=== PATIENT | male | born 1985 | race Caucasian/White ===

== ENCOUNTER 2019-10-14 19:10 | Inpatient (IN) | payer BC ==
[~2019-10-14] VITALS: Ht 190.5 cm; Wt 105.7 kg
--- NOTE | 2019-10-14 19:36 | NUR ---
PT BIBSELF TO ER WITH C/O RIGHT-SIDE ABDOMINAL PAIN SINCE 6PM TODAY. HAS NAUSEA, DENIES VOMITING. PAIN FEELS LIKE IT IS PULSATING. AAOX4. NO SOB. BREATHING EVENLY AND UNLABORED. CONNECTED TO MONITOR. PLACED IN BED 9
[2019-10-14] MEDS ORDERED: ONDANSETRON HCL/PF 4 MG/2 ML VIAL ONE ×2 (19:56→21:55)
[2019-10-14] MEDS ORDERED: KETOROLAC TROMETHAMINE 15 MG/ML VIAL ONE (19:56)
[2019-10-14 19:58] LABS: BASOPHILS # (AUTO) 0.1 /CMM (0.0-0.2); BASOPHILS % (AUTO) 1.4 % (0.0-2.0); EOSINOPHILS % (AUTO) 1.4 % (0.0-6.0); HEMATOCRIT 56 % (39-51); LYMPHOCYTES # (AUTO) 1.9 /CMM (0.8-4.8); LYMPHOCYTES % (AUTO) 33.1 % (20.0-44.0); MEAN CORPUSCULAR HGB CONC 34 g/dl (31.0-36.0); MEAN CORPUSCULAR VOLUME 94 fL (80-96); MONOCYTES # (AUTO) 0.6 /CMM (0.1-1.30); MONOCYTES % (AUTO) 9.6 % (2.0-12.0); NEUTROPHILS # (AUTO) 3.2 /CMM (1.8-8.9); NEUTROPHILS % (AUTO) 54.5 % (43.0-81.0); PLATELET COUNT (AUTO) 148 /CMM (150-450); WHITE BLOOD COUNT (AUTO) 5.8 K/uL (4.3-11.0)
[2019-10-14] MEDS ORDERED: MORPHINE SULFATE INJ 10 MG/ML DISP.SYRIN IV ONE (20:00)
[2019-10-14] MEDS ORDERED: IV NS 0.9% 1,000 ML BAG IV ONE ×2 (20:00→21:00)
[2019-10-14] MEDS ORDERED: KETOROLAC TROMETHAMINE INJ 30 MG/ML VIAL IV ONE (20:00)
[2019-10-14] MEDS ORDERED: ONDANSETRON HCL/PF 4 MG/2 ML VIAL IVP ONE (20:00)
[2019-10-14] MEDS ORDERED: MORPHINE SULFATE INJ 4 MG/ML DISP.SYRIN ONE (20:06)
--- NOTE | 2019-10-14 20:21 | NUR ---
US AT BEDSIDE
[2019-10-14 20:23] LABS: CREATININE 1.2 mg/dL (0.6-1.3)
[2019-10-14 20:29] LABS: ALBUMIN 4.1 g/dL (3.4-5.0); BILIRUBIN,DIRECT 0.1 mg/dL (0.0-0.2); BILIRUBIN,TOTAL 0.5 mg/dL (0.2-1.0); TOTAL PROTEIN, SERUM 7.5 g/dL (6.4-8.2)
[2019-10-14 21:08] LABS: EOSINOPHILS % (MANUAL) 1 % (0-4); LYMPHOCYTES % (MANUAL) 38 % (16-48); MONOCYTES % (MANUAL) 10 % (0-11.0); NEUTROPHILS % (MANUAL) 51 (42-76)
--- NOTE | 2019-10-14 21:22 | NUR ---
PATIENT RESTING IN BED 9, AWAKE AND ORIENTED. NOT IN ANY DISTRESS. NO SOB. CONNECTED TO MONITOR.
--- NOTE | 2019-10-14 21:47 | NUR ---
GRACE MIRANDA AT BEDSIDE FOR REEVALUATION
[2019-10-14] MEDS ORDERED: PIPERACILLIN /TAZOBACTAM 3.375 G VIAL IV ONE ×2 (21:55→21:57)
[2019-10-14] MEDS ORDERED: HYDROMORPHONE 1 MG/1 ML DISP.SYRIN ONE (21:56)
[2019-10-14] MEDS ORDERED: ONDANSETRON HCL/PF - ER 4 MG/2 ML VIAL IV ONE (22:00)
[2019-10-14] MEDS ORDERED: PIPERACILLIN /TAZOBACTAM 3.375 G in IV D5W 50 ML IV ONE (22:00)
[2019-10-14] MEDS ORDERED: HYDROMORPHONE 1 MG/1 ML DISP.SYRIN IV ONE (22:00)
[2019-10-14] MEDS ORDERED: ONDANSETRON HCL/PF 4 MG/2 ML VIAL IVP PRN (22:30)
[2019-10-14] MEDS ORDERED: MAG HYDROX/AL HYDROX/SIMETH 30 ML UDC PO PRN (22:30)
[2019-10-14] MEDS ORDERED: ACETAMINOPHEN 325 MG TABLET PO PRN (22:30)
[2019-10-14] MEDS ORDERED: MAGNESIUM HYDROXIDE 30 ML UDC PO PRN (22:30)
[2019-10-14] MEDS ORDERED: Z GUARD REMEDY 2 OZ OINT TP PRN (22:30)
--- NOTE | 2019-10-14 22:36 | NUR ---
PT STAYS AT "[facility]" [phone]
--- NOTE | 2019-10-14 22:39 | NUR ---
REPORT GIVEN TO BOO DIXON.
--- NOTE | 2019-10-14 22:39 | NUR ---
RN medsurg notes Received info from ZACK Spencer ER nurse.
[2019-10-14 23:15] VITALS: BP 132/85
--- NOTE | 2019-10-14 23:15 | NUR ---
ZACK aleman admission notes Received Pt from ER. Pt arrived at the unit at 2300 with a wheelchair. Pt is alert and orientedX4. Pt is a Male 34 YO with a diagnose of acute cholecytitis by RE Bonilla. Respiration is normal in room air. No SOB. No nausea or vomiting. No S/S of distress noted. Pt is able to ambulate with assist. Pt has a steady gait. IV sites at LAC# 20 is clean, intact, patent and flush without resistance. Skin is intact. VS is stable. Pt's belongings was checked by CODY Bernabe. [place] Pt to the room, unit and call light for assistance. Instructed to call for assistance. Safety precautions is maintained. Bed at low position, brakes locked, side rails upX2 and call light is within reach. Will continue to monitor.
--- NOTE | 2019-10-14 23:26 | NUR ---
ZACK medsurclare notes Informed consent for NM Hepato biliary HIDA is signed by Pt. Pt verbalize understanding.
[2019-10-14] MEDS: IV NS 0.9% 1,000 ML IV PRN (23:27)
[2019-10-15] MEDS ORDERED: PIPERACILLIN /TAZOBACTAM 3.375 G in IV D5W 50 ML IV SCH ×2
--- NOTE | 2019-10-15 00:35 | NUR ---
RN medsurg notes Dr. Bonilla at the bedside.
[2019-10-15] MEDS ORDERED: LEVO25TA7 PO (01:45)
[2019-10-15] MEDS ORDERED: BUPR-96 PO (01:45)
[2019-10-15] MEDS ORDERED: CLON0.5T PO (01:45)
[2019-10-15] MEDS ORDERED: PROP10TA10 PO (01:45)
[2019-10-15] MEDS ORDERED: ESCI20TA PO (01:45)
--- NOTE | 2019-10-15 02:50 | NUR ---
RN medsurg notes Rosmid from radiology and billing and accounting staff assistant take Pt to radiology for biliary HIDA with a wheelchair.
--- NOTE | 2019-10-15 02:55 | NUR ---
ZACK aleman notes Pt is in radiology.
--- NOTE | 2019-10-15 04:13 | NUR ---
ZACK wright notes Pt is back from the procedure. Pt tolerated activity well.
--- NOTE | 2019-10-15 04:17 | NUR ---
NM: HIDA SCAN WAS COMPLETED. TECH:RB
[2019-10-15 04:19] VITALS: BP 112/76
--- NOTE | 2019-10-15 04:19 | NUR ---
RN ash notes Pt is complaining of pain. Called Smita from radiology to ask if it's okay to give pain meds morphine since Pt's is back from HIDA test. Smita said "its okay." Charge nurse is aware and informed.
[2019-10-15] MEDS: MORPHINE SULFATE INJ 2 MG/ML DISP.SYRIN IV PRN ×3 (04:24→15:10)
--- NOTE | 2019-10-15 04:24 | NUR ---
RN ash notes Pt is complaining of pain on right abdomen. Administered morphine sulfate inj 1 mg/0.5 ml IV push as ordered for pain on right abdomen 8/10 on pain scale. Instructed to call. Safety precautions is maintained. Will continue to monitor.
--- NOTE | 2019-10-15 04:32 | NUR ---
RN medsurg notes Called Pharmacy and spoke with Shannon conditioning room worker pharmacy to checked and clarify Zosyn meds due at 0500. Shannon, pharmacy said only one time dose at 0500 and AM pharmacy will adjust the original order. Charge nurse is aware and informed.
[2019-10-15] MEDS ORDERED: PIPERACILLIN /TAZOBACTAM 3.375 G VIAL IV ONE (04:33)
--- NOTE | 2019-10-15 04:39 | NUR ---
RN medsurclare notes Administered Zosyn 3.375 G as ordered. Received Zosyn from charge nurse override. Verify and checked with pharmacy.
[2019-10-15] MEDS ORDERED: PIPERACILLIN /TAZOBACTAM 3.375 G in IV D5W 50 ML IV ONE (05:00)
--- NOTE | 2019-10-15 06:32 | NUR ---
RN medsurg closing notes Pt is resting in bed comfortably. Pt is alert and orientedX4. Respiration is normal. No SOB. No S/S of distress noted. IV sites at LAC is clean, intact, patent and infusing well NS @ 75 ml/hr. Kept Pt clean, dry, warm and comfortable. Routine meds were given as ordered including PRN meds for pain management. Instructed to call. Safety precautions is maintained. Bed at low position, brakes locked, side rails upX2 and call light is within reach. Will endorse to morning nurse for [place]ALE.
--- NOTE | 2019-10-15 07:07 | NUR ---
RN medsurclare notes Pt is complaining of nausea no vomiting. Administered Zofran inj 4mg/2ml IV push as ordered for nausea. Instructed to call. Safety precautions is maintained. Will continue to monitor.
[2019-10-15 07:19] LABS: BASOPHILS % (AUTO) 0.7 % (0.0-2.0); EOSINOPHILS % (AUTO) 1.7 % (0.0-6.0); HEMATOCRIT 49 % (39-51); HEMOGLOBIN 16.6 g/dL (13.5-17.5); LYMPHOCYTES # (AUTO) 1.6 /CMM (0.8-4.8); LYMPHOCYTES % (AUTO) 43.8 % (20.0-44.0); MEAN CORPUSCULAR HGB CONC 34 g/dl (31.0-36.0); MEAN CORPUSCULAR VOLUME 95 fL (80-96); MONOCYTES # (AUTO) 0.4 /CMM (0.1-1.30); MONOCYTES % (AUTO) 12.1 % (2.0-12.0); NEUTROPHILS # (AUTO) 1.5 /CMM (1.8-8.9); NEUTROPHILS % (AUTO) 41.7 % (43.0-81.0); PLATELET COUNT (AUTO) 107 /CMM (150-450); RED BLOOD CELL COUNT(AUTO) 5.14 MIL/uL (4.5-6.0); WHITE BLOOD COUNT (AUTO) 3.6 K/uL (4.3-11.0)
[2019-10-15 07:29] LABS: CALCIUM, SERUM 8.5 mg/dL (8.5-10.1); CREATININE 1.4 mg/dL (0.6-1.3); MAGNESIUM 1.8 mg/dL (1.8-2.4); PHOSPHORUS 5.1 mg/dL (2.5-4.9); POTASSIUM 4.4 mmol/L (3.5-5.1)
[2019-10-15 07:35] LABS: THYROID STIMULATING HORMONE 3.217 uIU/mL (0.358-3.74)
[2019-10-15] MEDS: PANTOPRAZOLE 40 MG VIAL IV SCH (08:29)
[2019-10-15] MEDS: LEVOTHYROXINE SODIUM 25 MCG TABLET PO SCH (08:30)
[2019-10-15] MEDS: BUPROPION XL 150 MG TAB.ER.24 PO SCH (08:30)
[2019-10-15] MEDS: ESCITALOPRAM OXALATE (10 MG) 10 MG TABLET PO SCH (08:30)
[2019-10-15] MEDS: PROPRANOLOL HCL 10 MG TABLET PO SCH (08:31)
[2019-10-15] MEDS: clonazePAM 0.5 MG TABLET PO SCH (08:31)
[2019-10-15] MEDS: NICOTINE PATCH (14MG) 14 MG PATCH.TD24 TD SCH (08:35)
[2019-10-15] MEDS: PIPERACILLIN /TAZOBACTAM 3.375 G in IV D5W 100 ML IV SCH ×2 (10:37→21:15)
--- NOTE | 2019-10-15 11:10 | NUR ---
REMAINS NPO, C/O " FEELING NAUSEATED", PAIN 8/10, " EPIGASTRIC ". BOTH PROTONIC IVP AND MORPHINE 1MG GIVEN
[2019-10-15 12:00] VITALS: BP 116/74
--- NOTE | 2019-10-15 14:23 | NUR ---
PAIN RELIEVED WITH MSO4, IVP. AWAITING CT OF ABDOMEN AND PELVIS, CT DEPARTMENT CALLED AND MADE AWARE
[2019-10-15 15:15] LABS: APPEARANCE,URINE CLEAR (CLEAR); BILIRUBIN,URINE NEGATIVE (NEGATIVE); BLOOD, URINE NEGATIVE Ery/uL (NEGATIVE); COLOR,URINE YELLOW (YELLOW); KETONES,URINE NEGATIVE (NEGATIVE); LEUKOCYTE ESTERASE ,URINE NEGATIVE (NEGATIVE); NITRITE, URINE NEGATIVE (NEGATIVE); PROTEIN,URINE NEGATIVE (NEGATIVE); UGLUCOSE NEGATIVE (NEGATIVE); UROBILINOGEN,URINE 0.2 EU/dL (0.2)
[2019-10-15 20:00] VITALS: BP 98/55
[2019-10-15] MEDS: HYDROCODONE/APAP 5/325MG 1 EACH TABLET PO PRN (21:15)
[2019-10-15] MEDS ORDERED: OLANZAPINE 10 MG TABLET PO SCH (22:00)
[2019-10-16] MEDS: IV NS 0.9% 1,000 ML IV PRN (03:49)
[2019-10-16] MEDS: PIPERACILLIN /TAZOBACTAM 3.375 G in IV D5W 100 ML IV SCH ×2 (03:50→11:02)
[2019-10-16 04:00] VITALS: BP 96/57
[2019-10-16 06:40] LABS: BASOPHILS % (AUTO) 0.5 % (0.0-2.0); EOSINOPHILS % (AUTO) 1.9 % (0.0-6.0); HEMATOCRIT 51 % (39-51); LYMPHOCYTES # (AUTO) 1.3 /CMM (0.8-4.8); LYMPHOCYTES % (AUTO) 35.1 % (20.0-44.0); MEAN CORPUSCULAR HGB CONC 34 g/dl (31.0-36.0); MEAN CORPUSCULAR VOLUME 95 fL (80-96); MONOCYTES # (AUTO) 0.5 /CMM (0.1-1.30); MONOCYTES % (AUTO) 12.3 % (2.0-12.0); NEUTROPHILS # (AUTO) 1.9 /CMM (1.8-8.9); NEUTROPHILS % (AUTO) 50.2 % (43.0-81.0); PLATELET COUNT (AUTO) 105 /CMM (150-450); RED BLOOD CELL COUNT(AUTO) 5.34 MIL/uL (4.5-6.0); WHITE BLOOD COUNT (AUTO) 3.7 K/uL (4.3-11.0)
[2019-10-16 07:03] LABS: CALCIUM, SERUM 8.6 mg/dL (8.5-10.1); CREATININE 1.3 mg/dL (0.6-1.3); POTASSIUM 3.7 mmol/L (3.5-5.1)
--- NOTE | 2019-10-16 07:33 | NUR ---
MS RN NOTES RECEIVED PATIENT IN BED A/OX4. NO SOB OR DISCOMFORT NOTED AT THIS TIME. CALL LIGHT WITHIN REACH BED AT THE LOWEST POSITION. WILL CONTINUE TO MONITOR.
[2019-10-16 08:00] VITALS: BP 118/70
[2019-10-16] MEDS ORDERED: MODAFINIL 100 MG TABLET PO SCH (09:00)
[2019-10-16] MEDS: PANTOPRAZOLE 40 MG VIAL IV SCH (09:06)
[2019-10-16] MEDS: LEVOTHYROXINE SODIUM 25 MCG TABLET PO SCH (09:21)
[2019-10-16] MEDS: ESCITALOPRAM OXALATE (10 MG) 10 MG TABLET PO SCH (09:22)
[2019-10-16] MEDS: clonazePAM 0.5 MG TABLET PO SCH (09:23)
[2019-10-16] MEDS: BUPROPION XL 150 MG TAB.ER.24 PO SCH (09:23)
[2019-10-16] MEDS: PROPRANOLOL HCL 10 MG TABLET PO SCH (09:24)
[2019-10-16] MEDS: HYDROCODONE/APAP 5/325MG 1 EACH TABLET PO PRN ×3 (09:25→17:57)
[2019-10-16] MEDS: NICOTINE PATCH (14MG) 14 MG PATCH.TD24 TD SCH (09:26)
--- NOTE | 2019-10-16 10:23 | NUR ---
MS RN NOTES PER DR IMAN BETANCOURT OK TO START CLEAR LIQUID TOLERATED.
--- NOTE | 2019-10-16 11:32 | NUR ---
Social service consult requested for discharge planning. Pt is 34 year old male who was admitted to [facility] for cholecystitis. Pt was alert and oriented x 4 (person, place, time, situation.) Pts next of kin contact is his mother, Milvia Navas [[phone]]. Pt is originally from [place] but states he currently lives at a sober living facility and plans to return there after discharge. SW called and confirmed with [facility] [employer] Dilan Garcia [[phone]] that pt will be accepted back to the facility [[facility]; [address] [place] [address]; [phone]] upon discharge. No other services needed at this time. SW available if needed.
[2019-10-16 12:00] VITALS: BP 115/55
[2019-10-16 16:00] VITALS: BP 115/55
--- NOTE | 2019-10-16 16:02 | NUR ---
MS RN NOTES PATIENT TOLERATED LIQUID DIET WELL WITHOUT ANY COMPLICATION. PER DR BETANCOURT CHANGED THE DIET TO REGULAR. WILL FOLLOW UP.
--- NOTE | 2019-10-16 16:57 | NUR ---
MS RN NOTES PATIENT HAD REGULAR FOOD FOR SNACK AND HE IS TOLERATING THE REGULAR FOOD WELL.
--- NOTE | 2019-10-16 18:27 | NUR ---
MS RN NOTES PATIENT IS STABLE A/OX4 ABLE TO WALK BY HIMSELF. DISCHARGED AT 1825. WALKED TO THE LOBBY FOR HIS FRIEND`S RIDE WITH THE HELP OF CODY MELO.
--- NOTE | 2019-10-16 18:29 | NUR ---
MS RN NOTES IV REMOVED, IV BAND REMOVED.
== END 2019-10-16 18:20 | disposition home or self-care (01) | DRG 391 ==
LOC: ER 19:15 → MEDSG1 22:33
PROVIDERS: ADMIT Registered Nurse; ATTEND Nurse Practitioner Acute Care
DX: A08.4 Viral intestinal infection, unspecified (principal); N17.0 Acute kidney failure with tubular necrosis; F32.9 Major depressive disorder, single episode, unspecified; F17.210 Nicotine dependence, cigarettes, uncomplicated; E66.9 Obesity, unspecified; E03.9 Hypothyroidism, unspecified; F41.9 Anxiety disorder, unspecified; Z68.29 Body mass index [BMI] 29.0-29.9, adult; D69.59 Other secondary thrombocytopenia; F10.20 Alcohol dependence, uncomplicated
CPT/HCPCS: 36415; 76705-TC; 78226; 80048-TC; 80061-TC; 80076-TC; 81000-TC; 83690-TC; 83735-TC; 84100-TC; 84443-TC; 85025-TC; 87081-TC; A9537; C9113; G0378; J1170; J1885; J2270; J2405; J2543; J7030; J7060